=== PATIENT | female | born 1950 | race African-American/Black ===

== ENCOUNTER 2017-06-25 16:40 | Emergency (ER) | payer OTHER ==
[2017-06-25 16:48] VITALS: BP 140/70; PULSE 64; BMI 38.0
[2017-06-25] MEDS ORDERED: KETOROLAC TROMETHAMINE 60 MG/2 ML VIAL IM ONE (17:25)
[2017-06-25] MEDS ORDERED: KETOROLAC TROMETHAMINE 60 MG/2 ML VIAL ONE (17:26)
[2017-06-25 17:35] VITALS: TEMP 97.6
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
== END 2017-06-25 19:17 | disposition home or self-care (01) ==
LOC: JERFT 16:40
PROC: 3E0233Z Introduction of Anti-inflammatory into Muscle, Percutaneous Approach (ICD-10-PCS; principal; 2017-06-25)
DX: M62.838 Other muscle spasm (principal); V73.6XXA Passenger on bus injured in collision with car, pick-up truck or van in traffic accident, initial encounter; Y93.89 Activity, other specified; Y92.410 Unspecified street and highway as the place of occurrence of the external cause; I10 Essential (primary) hypertension
CPT/HCPCS: 72050-TC; 99281-25

== ENCOUNTER 2020-02-22 12:13 | Emergency (ER) | payer OTHER ==
[2020-02-22 12:27] VITALS: BP 122/67; PULSE 70; TEMP 97.7; BMI 33.2
[2020-02-22] MEDS ORDERED: IBUPROFEN 600 MG TABLET (FP) PO ONE ×2 (12:38)
--- NOTE | 2020-02-22 12:45 | PDOC ---
History of Present Illness - General Chief Complaint: Bone Injury Stated Complaint: HURT ANKLE Time Seen by Provider: 02/22/20 12:27 History Source: Patient Exam Limitations: No Limitations - History of Present Illness Initial Comments: 02/22/20 12:39 HISTORY OF PRESENT ILLNESS: 69-year-old female past medical history of hypertension presents emergency department for evaluation of left ankle pain status post fall out of bed. Patient reports she accidentally rolled out of bed approximately 2 AM landing on the left side of her body. She reports she struck her ankle first but does not know what she hit it on. Patient reports she had left the bedside drawer open and believes she may have struck her ankle on the dresser drawer. Patient has been ambulatory since that time. Patient reports she hit her head on what she believes to bed frame but did not lose consciousness and currently denies any headache or neck pain. No recent travel or sick contacts. PAST MEDICAL HISTORY: Hypertension SURGICAL HISTORY: Denies ALLERGIES: No known drug allergies REVIEW OF SYSTEMS General/Constitutional: Denies fever or chills. Denies weakness, weight change. HEENT: Denies change in vision. Denies ear pain or discharge. Denies sore throat. Cardiovascular: Denies chest pain or shortness of breath. Respiratory: Denies cough, wheezing, or hemoptysis. Gastrointestinal: Denies nausea, vomiting, diarrhea or constipation. Denies rectal bleeding. Genitourinary: Denies dysuria, frequency, or change in urination. Musculoskeletal: See HPI Skin and breasts: Denies rash or easy bruising. Neurologic: Denies headache, vertigo, loss of consciousness, or loss of sensation. Psychiatric: Denies depression or anxiety. Endocrine: Denies increased thirst. Denies abnormal weight change. Hematologic/Lymphatic: Denies anemia, easy bleeding, or history of blood clots. Allergic/Immunologic: Denies hives or skin allergy. Denies latex allergy. PHYSICAL EXAM General Appearance: Well-appearing, appropriately dressed. No apparent distress, no intoxication. Vascular Pulses: Dorsalis-Pedis (R): 2+, Dorsalis-Pedis (L): 2+ Musculoskeletal/Extremities: Swelling present to the left foot anterior to the lateral malleolus. No bony tenderness, deformity, crepitus or step-off present of the bones of the lower leg, ankle or foot on the left side. Full range of motion of the ankle present with slight limitation due to pain. Neurovascularly intact. Integumentary: Appropriate color, dry, warm. No cyanosis, erythema, jaundice or rash Past History - Medical History Allergies/Adverse Reactions: Allergies Allergy/AdvReac Type Severity Reaction Status Date / Time No Known Allergies Allergy Verified 02/22/20 12:22 Home Medications: Ambulatory Orders Atenolol [Tenormin -] 50 mg PO DAILY 06/25/17 Cyclobenzaprine HCl [Flexeril 10 mg] 10 mg PO BID PRN #20 tablet MDD 2 06/25/17 Hydrochlorothiazide [Hctz -] 25 mg PO DAILY 06/25/17 Naproxen [Naprosyn -] 500 mg PO BID #14 tablet 06/25/17 COPD: No HTN: Yes - Reproductive History Is Patient Now?: No - Immunization History Immunization Up to Date: Yes - Psycho-Social/Smoking History Smoking History: Never smoked Have you smoked in the past 12 months: No - Substance Abuse Hx (Audit-C & DAST Scrn) How often the patient has a drink containing alcohol: Never Score: In Men: 4 or > Positive; In Women: 3 or > Positive: 0 Screen Result (Pos requires Nsg. Audit-10AR): Negative In the last yr the pt used illegal drug/Rx for NonMed reason: No Score: Yes response is considered Positive: 0 Screen Result (Positive result requires Nsg. DAST-10): Negative *Physical Exam - Vital Signs Last Vital Signs Temp Pulse Resp BP Pulse Ox 97.7 F 70 16 122/67 100 02/22/20 12:20 02/22/20 12:20 02/22/20 12:20 02/22/20 12:20 02/22/20 12:20 ED Treatment Course - RADIOLOGY Radiology Studies Ordered: Category Date Time Status ANKLE & FOOT-LEFT* [RAD] Stat Radiology 02/22/20 12:38 Ordered LEG TIB/FIB-LEFT [RAD] Stat Radiology 02/22/20 12:38 Ordered Medical Decision Making - Medical Decision Making 02/22/20 12:45 A/P: 69-year-old woman with left ankle pain status post fall out of bed at approximately 2 AM Normocephalic atraumatic. Neurologic exam is unremarkable No spinal tenderness appreciated No bony tenderness, deformity, crepitus or step-off upon palpation of the bones of the left lower leg, ankle or foot Swelling appreciated to the anterior lateral surface of the left ankle immediately anterior to the lateral malleolus. Full range of motion of the left ankle. X-rays of left ankle and left lower leg Motrin 600 mg orally now Reassess 02/22/20 13:02 X-rays as read by me: No acute fractures or dislocations present. Ankle mortise is intact. Nino wrap Discharge home to follow-up with orthopedics I discussed the physical exam findings, ancillary test results and final diagnoses with the patient. I answered all of the patient's questions. The patient was satisfied with the care received and felt comfortable with the discharge plan and treatment plan. The patient will call their primary care physician within 24 hours to arrange follow-up and will return to the Emergency Department with any new, persistent or worsening symptoms. Portions of this note have been documented using voice recognition software. As a result, errors may occur in the roadside mechanic process. Effort has been made to correct all grammatical and roadside mechanic error, but some may have been missed which may produce sporadic inaccurate roadside mechanic or nonsensical phrases. Discharge - Discharge Information Problems reviewed: Yes Clinical Impression/Diagnosis: Left ankle sprain Qualifiers: Encounter type: initial encounter Involved ligament of ankle: unspecified ligament Qualified Code(s): S93.402A - Sprain of unspecified ligament of left ankle, initial encounter Condition: Stable Disposition: HOME - Admission No - Follow up/Referral Referrals: Asha Serrato [Primary Care Provider] - Kiran Franklin MD [Staff Physician] - - Patient Discharge Instructions Additional Instructions: [email or web address] You be given a referral for an orthopedist. Call to schedule appointment for reevaluation of your pain. Your emergency department visit is incomplete until you follow-up with your regular doctor. Take Tylenol 2-500 mg tablets every 6 hours as needed for pain. Take Motrin 3-200 mg tablets every 6 hours as needed for pain. These medications do not require a prescription as they are [id number]. Apply ice to affected areas to help relieve pain. Do not leave ice on for more than 20 minutes at a time. Return to the emergency department for any new or worsening symptoms. Thank you very much for choosing us to provide your emergent health care needs. - Post Discharge Activity
== END 2020-02-22 13:11 | disposition home or self-care (01) ==
LOC: JERFT 12:13
DX: S93.402A Sprain of unspecified ligament of left ankle, initial encounter (principal)
CPT/HCPCS: 73590-TC-LT-FY; 73610-TC-LT-FY; 73630-TC-LT; 99284-25